=== PATIENT | female | born 1940 | race Two or more races ===

== ENCOUNTER 2018-10-14 11:24 | Emergency (ER) | payer SELFPAY ==
[2018-10-14 11:34] VITALS: BP 155/68; PULSE 64; TEMP 97.8; BMI 26.2
--- NOTE | 2018-10-14 12:24 | PDOC ---
Attending Attestation - Resident Resident Name: Sumaya Arredondo - ED Attending Attestation I have performed the following: I have examined & evaluated the patient, The case was reviewed & discussed with the resident, I agree w/resident's findings & plan, Exceptions are as noted - HPI HPI: 10/16/18 10:30 see below - Physicial Exam PE: 10/16/18 10:30 see below - Medical Decision Making 10/14/18 12:22 77y F hx of alzheimers, recent history of skin lesions/infection that resolved in [place] with topical abx approx 5 or 6 months ago.She traveled from [place] about a month ago, and was was well until saturday when she had lesions in the b/ l LE extremities distal to calf. denies systemic complaints including fever/ chills, n/v, rash elsewhere. pain to touch no meds 10/14/18 14:17 unclear etiology skin - occasional vesicular lesions with erythemadous base in the b/l LE, non tender to palpation, ont warm to touch, no discharge. appear to be in different phases. no rashes elsehwere on arms/torso, proximal legs, face, mucus membranes. pulm: cta bl due to distribution on LE, ?bug bites? possible zoster, but does not fit any distributions. no signs of erythema/ induration or suprainfection will ck lbas will have pt fu with PMD/Derm supportive care at home return precautions were discussed
--- NOTE | 2018-10-14 12:46 | PDOC ---
History of Present Illness - General Chief Complaint: Wound Stated Complaint: DM, ABSCESS Time Seen by Provider: 10/14/18 12:02 History Source: Family Exam Limitations: Dementia - History of Present Illness Initial Comments: 10/14/18 12:41 77 YOF with h/o Alzheimer's, left distal femur fxr/replacement with hardware in place (done in [place] one year ago), and prior pustular and cystic skin eruption to BLE distal to mid-calf (admitted in [place] 6 mo ago and tx only with topicals with complete resolution) who p/w recurrence of this pustular/ cystic skin eruption for the past 2 days in the same distribution BLE distal to mid-calf. She does not provide her medical hx 2/2 dementia and family is present to convey this information. They note she has been in pain whenever the leg lesions are touched. They have been monitoring the lesions and note they are worsening and more have been appearing since they noticed them. They have not noted she has had any f/c/n/v/d/c, change in appetite, dysuria, black/ bloody stool, headache, neck pain, chest pain, SOB, palpitations, abdominal pain , change in behavior, or any other symptoms. Past History - Past Medical History Allergies/Adverse Reactions: Allergies Allergy/AdvReac Type Severity Reaction Status Date / Time NSAIDS (Non-Steroidal Allergy Unknown Verified 10/14/18 11:27 Anti-Inflamma Home Medications: Ambulatory Orders No Home Medications 0 dose .ROUTE UTDICT 12/12/12 Cephalexin [Keflex] 500 mg PO Q6H #28 capsule 10/14/18 COPD: No Diabetes: Yes (not on meds) Disorders: Yes (UTI) Kidney Stones: Yes - Immunization History Immunization Up to Date: Yes - Suicide/Smoking/Psychosocial Hx Smoking Status: No Smoking History: Never smoked Number of Cigarettes Smoked Daily: 0 Review of Systems - Review of Systems Able to Perform ROS?: No (dementia) *Physical Exam - Vital Signs Last Vital Signs Temp Pulse Resp BP Pulse Ox 97.8 F 64 18 155/68 97 10/14/18 11:28 10/14/18 11:28 10/14/18 11:28 10/14/18 11:28 10/14/18 11:28 10/14/18 12:46 GENERAL: well-appearing, A/Ox2 stated per baseline per family present at bedside , no distress, nontoxic systemic appearance HEENT: PERRLA, EOMI, moist mucous membranes NECK/BACK: no midline ttp, no spinal stepoff or deformity, no hematoma, full ROM , neck supple CARDIOVASCULAR: regular rate/rhythm, normal S1S2, 1/6 systolic ejection murmur, strong peripheral pulses including DP, capillary refill <2 seconds, extremities wwp, no edema LUNGS/RESPIRATORY: no respiratory distress, CTAB GI/ABDOMEN: symmetric [id number], normoactive BS, soft, no ttp, no midline pulsatile masses : no CVA tenderness EXTREMITIES: left lateral distal femur with well-healed surgical incision, no muscle atrophy, no acute deformity, no edema, see skin exam SKIN: about 4 lesions per lower extremity, all distal to mid-calf, some more cystic in nature with overlying ecchymosis and tiny scabbed secondary lesions overlying, other newer appearing lesions are roughly 2x2mm diameter with surrounding mild erythema and are pustular, one left-sided plantar lesion appears to be a secondary lesion with scab which appears to have been removed manually and now has small amount of drainage, nonmalodorous, otherwise skin is warm and dry, no pallor, no jaundice, no rash, no bruising, no skin breakdown, no cuts, no additional lesions NEUROLOGICAL: GCS 15, CN II-XII grossly intact, 5/5 strength proximally and distally, no facial droop, gait not tested Moderate Sedation - Procedure Monitoring Vital Signs: Procedure Monitoring Vital Signs Temperature 97.8 F 10/14/18 11:28 Pulse Rate 64 10/14/18 11:28 Respiratory Rate 18 10/14/18 11:28 Blood Pressure 155/68 10/14/18 11:28 O2 Sat by Pulse Oximetry (%) 97 10/14/18 11:28 ED Treatment Course - LABORATORY CBC & Chemistry Diagram: 10/14/18 12:35 10/14/18 12:35 Medical Decision Making - Medical Decision Making 10/14/18 12:30 77 YOF with dementia, prior left femur fxr repair, prior BLE skin eruption of unknown etiology, p/w recurrence of this skin eruption x2 days which are painful but no reported systemic sxs. Initial Vital Signs Temp Pulse Resp BP Pulse Ox 97.8 F 64 18 155/68 97 10/14/18 11:28 10/14/18 11:28 12/18/18 11:28 10/14/18 11:28 10/14/18 11:28 Differential includes MRSA, folliculitis (bacterial vs viral vs fungal), Provider Orders Category Date Time Status CBC WITH DIFFERENTIAL Stat Lab 10/14/18 12:30 Ordered COMP METABOLIC PANEL Stat Lab 10/14/18 12:30 Ordered LACTIC ACID Stat Lab 10/14/18 12:34 Ordered MAGNESIUM Stat Lab 10/14/18 12:30 Ordered PHOSPHOROUS Stat Lab 10/14/18 12:30 Ordered URINALYSIS Stat Lab 10/14/18 13:00 Received BLOOD CULTURE Stat Micro 10/14/18 12:34 Ordered WOUND CULTURE Stat Micro 10/14/18 12:34 Ordered 10/14/18 14:16 There are no abnormalities c/f emergency pathology on w/u (see below). The patient reports no pain at this time. On last reassessment, vitals are wnl, and exam is benign. Workup is not concerning for emergency-level pathology at this time. This patient is appropriate for discharge with Keflex and f/u as outpatient. They are comfortable with this plan and will follow up with a PCP (given information by ). Specific return precautions are discussed and they will come back to the ER if necessary. Laboratory Tests 10/14/18 10/14/18 10/14/18 12:35 12:35 12:35 WBC 6.5 RBC 4.68 Hgb 13.6 Hct 39.7 MCV 84.9 MCH 29.0 MCHC 34.2 RDW 14.2 Plt Count 216 MPV 8.8 Absolute Neuts (auto) 4.6 Neutrophils % 70.6 Lymphocytes % 21.1 Monocytes % 7.3 Eosinophils % 0.9 Basophils % 0.1 Nucleated RBC % 0 Sodium 140 Potassium 3.9 Chloride 104 Carbon Dioxide 30 Anion Gap 6 L BUN 14 Creatinine 0.5 L Creat Clearance w eGFR > 60 Random Glucose 86 Lactic Acid 0.7 Calcium 9.2 Phosphorus 3.7 Magnesium 1.9 Total Bilirubin 0.5 AST 22 ALT 14 Alkaline Phosphatase 147 H Total Protein 7.6 Albumin 3.9 Urine Color Urine Appearance Urine pH Ur Specific [place] Urine Protein Urine Glucose (UA) Urine Ketones Urine Blood Urine Nitrite Urine Bilirubin Urine Urobilinogen Ur Leukocyte Esterase Urine WBC (Auto) Urine RBC (Auto) Ur Epithelial Cells Urine Bacteria 10/14/18 13:00 WBC RBC Hgb Hct MCV MCH MCHC RDW Plt Count MPV Absolute Neuts (auto) Neutrophils % Lymphocytes % Monocytes % Eosinophils % Basophils % Nucleated RBC % Sodium Potassium Chloride Carbon Dioxide Anion Gap BUN Creatinine Creat Clearance w eGFR Random Glucose Lactic Acid Calcium Phosphorus Magnesium Total Bilirubin AST ALT Alkaline Phosphatase Total Protein Albumin Urine Color Straw Urine Appearance Clear Urine pH 7.0 Ur Specific [place] 1.006 L Urine Protein Negative Urine Glucose (UA) Negative Urine Ketones Negative Urine Blood 1+ H Urine Nitrite Negative Urine Bilirubin Negative Urine Urobilinogen Negative Ur Leukocyte Esterase Trace Urine WBC (Auto) 2 Urine RBC (Auto) 1 Ur Epithelial Cells Rare Urine Bacteria Moderate *DC/Admit/Observation/Transfer Diagnosis at time of Disposition: Skin eruption - Discharge Dispostion Disposition: HOME Condition at time of disposition: Stable Decision to Admit order: No - Prescriptions Prescriptions: Cephalexin [Keflex] 500 mg PO Q6H #28 capsule - Referrals - Patient Instructions Additional Instructions: You were seen in the ER for a skin reaction. We did lab work and did not find any abnormalities. After our assessment, we do not believe there is a medical emergency at this time, and we believe it is safe to go home. You can apply a small amount of bacitracin or other antibiotic ointment to the lesions twice a day. Wash the skin once a day with mild soap, do not scrub too hard because this may irritate the skin, and do not soak in the bathtub. 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 Complete the entire course of antibiotics, whether or not the symptoms improve. Please follow up with a primary care provider in 1-3 days. If there are any new or worsening symptoms, please come back to the ER at any time (24 hours a day). Especially come back if you have fever, worsening redness to the legs, large very painful lesions, inability to walk like you normally do, or other concerns. If the symptoms appear severe or life-threatening, please call 911 to have an ambulance take you to the ER. - Post Discharge Activity
[2018-10-14 12:53] LABS: BASO % 0.1 % (0-2.0); EOS % 0.9 % (0-4.5); HEMATOCRIT 39.7 % (32.4-45.2); HEMOGLOBIN 13.6 GM/dL (10.7-15.3); LYMPH % 21.1 % (8-40); MCHC 34.2 g/dl (32.0-36.0); MEAN CELL VOLUME 84.9 fl (80-96); MEAN PLT VOLUME 8.8 fl (7.5-11.1); MONO % 7.3 % (3.8-10.2); NEUT % 70.6 % (42.8-82.8); PLATELET COUNT 216 K/MM3 (134-434); RBC 4.68 M/mm3 (3.60-5.2); RDW 14.2 % (11.6-15.6); WHITE BLOOD COUNT 6.5 K/mm3 (4.0-10.0)
[2018-10-14 13:23] LABS: URINE APPEARANCE CLEAR; URINE BILIRUBIN NEGATIVE (<2.0 mg/dL); URINE COLOR STRAW; URINE GLUCOSE (UA) NEGATIVE (NEGATIVE); URINE KETONE NEGATIVE (NEGATIVE); URINE LEUK ESTERASE TRACE (NEGATIVE); URINE NITRITE NEGATIVE (NEGATIVE); URINE PROTEIN NEGATIVE (NEGATIVE); URINE UROBILINOGEN NEGATIVE mg/dL (0.2-1.0)
[2018-10-14 13:27] LABS: EPI CELLS RARE /HPF (FEW); URINE BACTERIA MODERATE /hpf (NONE SEEN)
[2018-10-14 13:28] LABS: ALBUMIN 3.9 g/dl (3.4-5.0); ALK PHOS 147 U/L (45-117); ANION GAP 6 MMOL/L (8-16); BILIRUBIN,TOTAL 0.5 mg/dL (0.2-1); BLOOD UREA NITROGEN 14 mg/dL (7-18); CALCIUM 9.2 mg/dL (8.5-10.1); CHLORIDE 104 mmol/L (98-107); CO2 30 mmol/L (21-32); CREATININE 0.5 mg/dL (0.55-1.3); GLUCOSE,RANDOM 86 mg/dL (74-106); MAGNESIUM 1.9 mg/dL (1.8-2.4); PHOSPHOROUS 3.7 mg/dL (2.5-4.9); POTASSIUM 3.9 mmol/L (3.5-5.1); SGOT/AST 22 U/L (15-37); SGPT/ALT 14 U/L (13-61); SODIUM 140 mmol/L (136-145); TOT PROT 7.6 g/dl (6.4-8.2)
== END 2018-10-14 14:19 | disposition home or self-care (01) ==
LOC: JER 11:24
CPT/HCPCS: 36415; 80053; 81003; 81015; 83605; 83735; 84100; 85025; 87040; 99283-25

== ENCOUNTER 2019-02-18 14:14 | Emergency (ER) | payer SELFPAY ==
[2019-02-18 14:18] VITALS: BP 110/75; PULSE 97; TEMP 97.9; BMI 23.2
--- NOTE | 2019-02-18 14:19 | PDOC ---
Rapid Medical Evaluation Time Seen by Provider: 02/18/19 14:16 Medical Evaluation: Allergies Allergy/AdvReac Type Severity Reaction Status Date / Time NSAIDS (Non-Steroidal Allergy Unknown Verified 10/14/18 11:27 Anti-Inflamma 02/18/19 14:16 I have performed a brief in-person evaluation of this patient. The patient presents with a chief complaint of: left flank pain x2 weeks s/p fall Pertinent physical exam findings: left CVAT. I have ordered the following: urine The patient will proceed to the ED for further evaluation. Discharge Disposition - Diagnosis Flank pain - Referrals - Patient Instructions - Post Discharge Activity
--- NOTE | 2019-02-18 14:50 | PDOC ---
History of Present Illness - General Chief Complaint: Injury Stated Complaint: LOWER BACK PAIN Time Seen by Provider: 02/18/19 14:16 - History of Present Illness Initial Comments: 02/18/19 14:49 78-year-old female presents for evaluation of left-sided rib pain after fall at a bed 2 weeks ago. Past History - Past Medical History Allergies/Adverse Reactions: Allergies Allergy/AdvReac Type Severity Reaction Status Date / Time NSAIDS (Non-Steroidal Allergy Unknown Verified 02/18/19 14:18 Anti-Inflamma Home Medications: Ambulatory Orders Docosahexanoic Acid/Epa [Fish Oil Concentrate Softgel] 1 each PO DAILY 02/18/19 Spirometers and Accessories [Mistassist] 1 each MC ASDIR #1 each 02/18/19 COPD: No Dementia: Yes Diabetes: Yes (not on meds) Disorders: Yes (UTI) Kidney Stones: Yes - Immunization History Immunization Up to Date: Yes - Suicide/Smoking/Psychosocial Hx Smoking Status: No Smoking History: Never smoked Number of Cigarettes Smoked Daily: 0 Information on smoking cessation initiated: No Hx Alcohol Use: No Drug/Substance Use Hx: No Review of Systems - Review of Systems Respiratory: No: Shortness of Breath Cardiac (ROS): Yes: See HPI, Chest Pain *Physical Exam - Vital Signs Last Vital Signs Temp Pulse Resp BP Pulse Ox 97.9 F 97 H 18 110/75 96 02/18/19 14:17 02/18/19 14:17 02/18/19 14:17 02/18/19 14:17 02/18/19 14:17 - Physical Exam Comments: 02/18/19 14:49 HEAD: NC/AT EYES: Conjuntiva clear NOSE: No d/c THROAT: Moist mucous membrances, oral pharanx clear, uvula midline NECK: Supple without adenopathy CARDIAC: S1 S2 LUNGS: CTA Full and Equal breath sounds; fading ecchymosis L flank ABDOMEN: Soft NT ND MS: Full ROM in all joints without edema NEUROLOGIC: No gross sensory or motor deficits, NVID SKIN: Normal color and temperature no lesions or rashes 02/18/19 15:13 ED Treatment Course - RADIOLOGY Radiology Studies Ordered: Category Date Time Status CHEST - PA [RAD] Stat Radiology 02/18/19 14:45 Ordered RIBS-LEFT SIDE [RAD] Stat Radiology 02/18/19 14:45 Ordered Medical Decision Making - Medical Decision Making 02/18/19 15:12 Principal rib fracture on radiograph. UA appears positive for UTI however patient is asymptomatic elderly may be colonized at baseline. I will await culture before treatment. *DC/Admit/Observation/Transfer Diagnosis at time of Disposition: Flank pain, Contusion of rib on left side - Discharge Dispostion Disposition: HOME Condition at time of disposition: Stable Decision to Admit order: No - Referrals Referrals: Angus Ca MD [Staff Physician] - - Patient Instructions Additional Instructions: Return to the emergency room for worsening symptoms. Please follow-up with your primary care physician in one to 2 days for further evaluation and treatment options. Tylenol as directed for pain. Please use the incentive spirometer as directed 10 times an hour while awake. - Post Discharge Activity
[2019-02-18 15:06] LABS: EPI CELLS 8.2 /HPF (0-5/HPF); PH,URINE 5.5 (5.0-8.0); URINE APPEARANCE CLEAR; URINE BILIRUBIN NEGATIVE (NEGATIVE); URINE CASTS 11 /lpf (0-8); URINE COLOR YELLOW; URINE GLUCOSE (UA) NEGATIVE (NEGATIVE); URINE KETONE NEGATIVE (NEGATIVE); URINE LEUK ESTERASE 2+ (NEGATIVE); URINE NITRITE NEGATIVE (NEGATIVE); URINE PROTEIN NEGATIVE (NEGATIVE); URINE RBC 2 /hpf (0-4); URINE WBC 12 /hpf (0-5)
== END 2019-02-18 15:25 | disposition home or self-care (01) ==
LOC: JERFT 14:14
DX: S30.1XXA Contusion of abdominal wall, initial encounter (principal); W06.XXXA Fall from bed, initial encounter; Y93.84 Activity, sleeping; Y92.003 Bedroom of unspecified non-institutional (private) residence as the place of occurrence of the external cause; E11.9 Type 2 diabetes mellitus without complications; F03.90 Unspecified dementia, unspecified severity, without behavioral disturbance, psychotic disturbance, mood disturbance, and anxiety
CPT/HCPCS: 71045-TC-FY; 71101-TC-LT-FY; 81003; 87086; 99281-25

== ENCOUNTER 2019-02-20 14:04 | Emergency (ER) | payer SELFPAY ==
[2019-02-20 14:17] VITALS: BP 102/62; PULSE 64; TEMP 97.9; BMI 23.4
--- NOTE | 2019-02-20 14:18 | PDOC ---
Rapid Medical Evaluation Chief Complaint: Revisit,Radiology Variance Time Seen by Provider: 02/20/19 14:13 Medical Evaluation: Allergies Allergy/AdvReac Type Severity Reaction Status Date / Time NSAIDS (Non-Steroidal Allergy Unknown Verified 02/20/19 14:12 Anti-Inflamma 02/20/19 14:14 I have performed a brief in-person evaluation of this patient. The patient presents with a chief complaint of: Call back for possible L 4th/ 5th rib fxs on CXR 3 days ago. Pt s/p fall 2 weeks ago. Continues c/o pain to L chest wall but nor worse and no SOB. Pertinent physical exam findings:Stable and well cosmo I have ordered the following:CXR The patient will proceed to the ED for further evaluation. Discharge Disposition - Diagnosis Chest wall pain - Referrals - Patient Instructions - Post Discharge Activity
--- NOTE | 2019-02-20 16:14 | PDOC ---
History of Present Illness - General Chief Complaint: Revisit,Radiology Variance Stated Complaint: REVISIT Time Seen by Provider: 02/20/19 14:13 History Source: Patient Exam Limitations: Language Barrier - History of Present Illness Initial Comments: 02/20/19 16:05 HISTORY OF PRESENT ILLNESS: This 78-year-old woman presents emergency department for evaluation of left rib cage pain status post fall out of bed 4 days ago. Patient was seen and evaluated in this emergency department and told that she has rib fractures on the left side. Upon receiving the call telling her she had rib fractures she mistakenly thought she needed to return to the emergency department for reevaluation. Patient reports no change in level of pain or shortness of breath. No recent travel or sick contacts. PAST MEDICAL HISTORY: Denies past medical history SURGICAL HISTORY: Denies ALLERGIES: No known drug allergies REVIEW OF SYSTEMS General/Constitutional: Denies fever or chills. Denies weakness, weight change. HEENT: Denies change in vision. Denies ear pain or discharge. Denies sore throat. Cardiovascular: Denies chest pain or shortness of breath. Respiratory: Denies cough, wheezing, or hemoptysis. Gastrointestinal: Denies nausea, vomiting, diarrhea or constipation. Denies rectal bleeding. Genitourinary: Denies dysuria, frequency, or change in urination. Musculoskeletal:see HPI Skin and breasts: Denies rash or easy bruising. Neurologic: Denies headache, vertigo, loss of consciousness, or loss of sensation. Psychiatric: Denies depression or anxiety. Endocrine: Denies increased thirst. Denies abnormal weight change. Hematologic/Lymphatic: Denies anemia, easy bleeding, or history of blood clots. Allergic/Immunologic: Denies hives or skin allergy. Denies latex allergy. PHYSICAL EXAM General Appearance: Well-appearing, appropriately dressed. No apparent distress , no intoxication. HEENT: EOMI, PERRLA, normal ENT inspection, normal voice, TMs normal, pharynx normal. No conjunctival pallor. No photophobia, scleral icterus. Neck: Supple. Trachea midline. No tenderness, rigidity, carotid bruit, stridor , lymphadenopathy, or thyromegaly. Respiratory/Chest: Lungs CTAB. No shortness of breath, chest tenderness, respiratory distress, accessory muscle use. No crackles, rales, rhonchi, stridor , wheezing, dullness Cardiovascular: RRR. S1, S2. No JVD, murmur, bradycardia, tachycardia. Vascular Pulses: Dorsalis-Pedis (R): 2+, Dorsalis-Pedis (L): 2+ Gastrointestinal/Abdominal: Normal bowel sounds. Abdomen soft, non-distended. No tenderness or rebound tenderness. No organomegaly, pulsatile mass, guarding, hernia, hepatomegaly, splenomegaly. Lymphatic: No adenopathy, tenderness. Musculoskeletal/Extremities: Normal inspection. Left rib shellfish processing machine tender to palpation along the fourth and fifth ribs at the mid axillary line. No ecchymosis is present. Integumentary: Appropriate color, dry, warm. No cyanosis, erythema, jaundice or rash Neurologic: channel turner II-XII intact. Fully oriented, alert. Appropriate mood/affect. Motor strength 5/5. No appreciable EOM palsy, facial droop or sensory deficit. 02/20/19 17:10 Past History - Past Medical History Allergies/Adverse Reactions: Allergies Allergy/AdvReac Type Severity Reaction Status Date / Time NSAIDS (Non-Steroidal Allergy Unknown Verified 02/20/19 14:12 Anti-Inflamma Home Medications: Ambulatory Orders Docosahexanoic Acid/Epa [Fish Oil Concentrate Softgel] 1 each PO DAILY 02/18/19 Spirometers and Accessories [Mistassist] 1 each ASDIR #1 each 02/18/19 COPD: No Dementia: Yes Diabetes: Yes (not on meds) Disorders: Yes (UTI) Kidney Stones: Yes - Immunization History Immunization Up to Date: Yes - Suicide/Smoking/Psychosocial Hx Smoking Status: No Smoking History: Never smoked Number of Cigarettes Smoked Daily: 0 Hx Alcohol Use: No Drug/Substance Use Hx: No *Physical Exam - Vital Signs Last Vital Signs Temp Pulse Resp BP Pulse Ox 97.9 F 64 18 102/62 95 02/20/19 14:13 02/20/19 14:13 02/20/19 14:13 02/20/19 14:13 02/20/19 14:13 Medical Decision Making - Medical Decision Making 02/20/19 16:04 A/P: 78-year-old woman who represented to the emergency department for fractured ribs Incentive spirometer Urine culture Discharge home with referral for Dr. Knox I discussed the physical exam findings, ancillary test results and final diagnoses with the patient. I answered all of the patient's questions. The patient was satisfied with the care received and felt comfortable with the discharge plan and treatment plan. The patient will call their primary care physician within 24 hours to arrange follow-up and will return to the Emergency Department with any new, persistent or worsening symptoms. *DC/Admit/Observation/Transfer Diagnosis at time of Disposition: Rib fractures Qualifiers: Encounter type: subsequent encounter Rib fracture type: multiple ribs Fracture type: closed Laterality: left - Discharge Dispostion Disposition: HOME Condition at time of disposition: Stable Decision to Admit order: No - Referrals Referrals: Thor Knox MD [Staff Physician] - - Patient Instructions Additional Instructions: No rib fractures will take some time to heal. It is important that she take deep breaths even if it hurts. Use incentive spirometer 10 times every hour. That is one use for every commercial that is on television. Hold a pillow firmly against area of pain when taking deep breaths to help improve decreased pain with of breath. Return to the emergency department for shortness of breath, fevers, coughing, worsening pain or for any other concerns. Thank you very much for choosing us to provide your emergent health care needs. - Post Discharge Activity
== END 2019-02-20 16:20 | disposition home or self-care (01) ==
LOC: JERFT 14:04
DX: S22.42XD Multiple fractures of ribs, left side, subsequent encounter for fracture with routine healing (principal); W06.XXXD Fall from bed, subsequent encounter; Z87.440 Personal history of urinary (tract) infections
CPT/HCPCS: 71046-TC-FY; 87086; 99281-25